=== PATIENT | female | born 1955 | race Caucasian/White ===

== ENCOUNTER 2018-08-02 23:55 | Inpatient (IN) | payer OTHER, MEDICARE ==
[~2018-08-02] VITALS: Ht 162.6 cm; Wt 108.6 kg
[2018-08-03] MEDS ORDERED: MORPHINE SULFATE 4 MG/ML, 1ML ONE ×2 (00:20→12:28)
[2018-08-03] MEDS ORDERED: ONDANSETRON 2MG/ML, 2ML ONE (00:20)
[2018-08-03] MEDS ORDERED: MORPHINE SULFATE 4 MG/ML, 1ML IVPush PRN (00:30)
[2018-08-03] MEDS ORDERED: SODIUM CHLORIDE 0.9% 1,000ML IVBOLUS ONE (00:30)
[2018-08-03] MEDS ORDERED: ONDANSETRON 2MG/ML, 2ML IVPush ONE (00:30)
[2018-08-03] MEDS ORDERED: NORE1TAB22 PO (00:58)
[2018-08-03] MEDS ORDERED: PARO20TA4 PO (00:58)
[2018-08-03] MEDS ORDERED: CLOB15CR19 TP (00:58)
[2018-08-03] MEDS ORDERED: ATEN100T PO (00:58)
[2018-08-03] MEDS ORDERED: IBUP-1222 PO (00:58)
[2018-08-03] MEDS ORDERED: OXYC-307 PO (00:58)
[2018-08-03] MEDS ORDERED: NORT25CA PO (00:58)
[2018-08-03] MEDS ORDERED: ONDANSETRON 2MG/ML, 2ML IVPush PRN (01:00)
[2018-08-03] MEDS ORDERED: ONDANSETRON ODT 4 MG PO PRN (01:00)
[2018-08-03] MEDS ORDERED: BACLOFEN 10 MG TABLET PO PRN (01:00)
[2018-08-03] MEDS ORDERED: POLYETHYLENE GLYCOL 17 GM PACKET PO PRN (01:00)
[2018-08-03] MEDS ORDERED: hydrALAzine 20 MG/ML, 1ML IVPush PRN (01:00)
[2018-08-03 02:46] LABS: MICROSCOPIC AUTO
[2018-08-03 02:47] LABS: CULTURE INDICATED? YES
[2018-08-03] MEDS: morphine SULFATE 10 MG/ML, 1ML IVPush PRN ×7 (03:50→19:10)
[2018-08-03] MEDS: SODIUM CHLORIDE 0.9% 1,000 ML IV SCH ×2 (03:50→16:02)
[2018-08-03 05:21] LABS: BASOPHILS # (AUTO) 0.03 x10^3/uL (0-0.1); BASOPHILS % (AUTO) 0 % (0-1); EOSINOPHILS # (AUTO) 0.03 x10^3/uL (0-0.4); EOSINOPHILS % (AUTO) 0 % (1-7); LYMPHOCYTES # (AUTO) 1.63 x10^3/uL (1-3.4); LYMPHOCYTES % (AUTO) 20 % (22-44); MD NO; MEAN CORPUSCULAR HEMOGLOBIN 27.5 pg (27.0-34.8); MEAN CORPUSCULAR HGB CONC 32.5 g/dL (32.4-35.8); MEAN CORPUSCULAR VOLUME 84.4 fL (80-100); MEAN PLATELET VOLUME 7.4 fL (7.4-10.4); MONOCYTES # (AUTO) 0.44 x10^3/uL (0.2-0.8); MONOCYTES % (AUTO) 5 % (2-9); NEUTROPHILS # (AUTO) 6.11 x10^3/uL (1.8-6.8); NEUTROPHILS % (AUTO) 74 % (42-75); PLATELET COUNT 258 x10^3/uL (130-400); RED BLOOD COUNT 4.08 x10^6/uL (3.82-5.3); RED CELL DISTRIBUTION WIDTH 13.6 % (9.6-15.2)
[2018-08-03 05:34] LABS: CHLORIDE 106 mmol/L (98-107)
[2018-08-03 05:38] LABS: ANION GAP 10 mmol/L (5-15); CALCIUM 8.2 mg/dL (8.5-10.1); CREATININE 1.06 mg/dL (0.55-1.02)
[2018-08-03 07:02] VITALS: BP 113/76
[2018-08-03] MEDS ORDERED: AMLO10TA6 PO (09:41)
[2018-08-03] MEDS ORDERED: FLUO40CA9 PO (09:41)
[2018-08-03] MEDS ORDERED: DULO30CA2 PO (09:41)
[2018-08-03 12:45] VITALS: BP 102/74
[2018-08-03] MEDS ORDERED: GLUCAGON 1 MG IM PRN (14:00)
[2018-08-03] MEDS ORDERED: DEXTROSE 4 GM TAB.CHEW PO PRN (14:00)
[2018-08-03] MEDS ORDERED: DEXTROSE 50%, 50ML SYRINGE IVPush PRN (14:00)
[2018-08-03] MEDS: D5%-0.45% NACL 1,000 ML IV SCH (14:45)
[2018-08-03 20:11] VITALS: BP 124/79
[2018-08-03] MEDS: ACETAMINOPHEN 325 MG TABLET PO PRN (20:37)
[2018-08-03] MEDS: CLOBETASOL PROPIONATE CRM 0.05%, 15GM TP SCH (21:00)
[2018-08-03] MEDS: SODIUM CHLORIDE FLUSH 10ML SYR IVF SCH (21:00)
[2018-08-03] MEDS: FLUOXETINE HCL 20 MG CAPSULE PO SCH (21:19)
[2018-08-03] MEDS: NORTRIPTYLINE 50 MG CAPSULE PO SCH (21:20)
[2018-08-03] MEDS: OXYcodone IR 5MG TABLET PO PRN (21:20)
[2018-08-04] MEDS: OXYcodone IR 5MG TABLET PO PRN ×6 (01:46→22:03)
[2018-08-04 02:02] VITALS: BP 115/75
[2018-08-04] MEDS: morphine SULFATE 10 MG/ML, 1ML IVPush PRN ×3 (04:57→10:28)
[2018-08-04 05:40] LABS: CHLORIDE 104 mmol/L (98-107)
[2018-08-04 05:47] LABS: ANION GAP 10 mmol/L (5-15); CALCIUM 8.5 mg/dL (8.5-10.1); CREATININE 1.26 mg/dL (0.55-1.02)
[2018-08-04 05:55] LABS: BASOPHILS # (AUTO) 0.02 x10^3/uL (0-0.1); BASOPHILS % (AUTO) 0 % (0-1); EOSINOPHILS # (AUTO) 0.29 x10^3/uL (0-0.4); EOSINOPHILS % (AUTO) 3 % (1-7); LYMPHOCYTES # (AUTO) 1.35 x10^3/uL (1-3.4); LYMPHOCYTES % (AUTO) 16 % (22-44); MD NO; MEAN CORPUSCULAR HEMOGLOBIN 27.9 pg (27.0-34.8); MEAN CORPUSCULAR VOLUME 84.7 fL (80-100); MEAN PLATELET VOLUME 7.5 fL (7.4-10.4); MONOCYTES # (AUTO) 0.68 x10^3/uL (0.2-0.8); MONOCYTES % (AUTO) 8 % (2-9); NEUTROPHILS # (AUTO) 6.05 x10^3/uL (1.8-6.8); NEUTROPHILS % (AUTO) 72 % (42-75); PLATELET COUNT 223 x10^3/uL (130-400); RED BLOOD COUNT 3.92 x10^6/uL (3.82-5.3); RED CELL DISTRIBUTION WIDTH 13.5 % (9.6-15.2)
[2018-08-04 07:02] LABS: HEMOGLOBIN A1C 5.7 % (4.2-6.3)
[2018-08-04] MEDS: FLUOXETINE HCL 20 MG CAPSULE PO SCH ×2 (08:14→22:03)
[2018-08-04] MEDS: ATENOLOL 50 MG TABLET PO SCH (08:14)
[2018-08-04] MEDS: DULOXETINE 30 MG CAPSULE.DR PO SCH (08:14)
[2018-08-04] MEDS: AMLODIPINE 10 MG TAB PO SCH ×2 (08:14→08:24)
[2018-08-04] MEDS: NORETHINDRONE ETHINYL ESTRAD PO SCH (08:15)
[2018-08-04] MEDS: SODIUM CHLORIDE FLUSH 10ML SYR IVF SCH ×2 (08:15→21:00)
[2018-08-04 08:22] VITALS: BP 111/76
[2018-08-04] MEDS: CLOBETASOL PROPIONATE CRM 0.05%, 15GM TP SCH ×2 (09:00→21:00)
[2018-08-04] MEDS: D5%-0.45% NACL 1,000 ML IV SCH (10:00)
[2018-08-04] MEDS: SODIUM CHLORIDE 0.9% 1,000 ML IV SCH (12:33)
[2018-08-04 13:59] VITALS: BP 99/56
[2018-08-04] MEDS: ACETAMINOPHEN 325 MG TABLET PO PRN (15:00)
[2018-08-04 18:52] VITALS: BP 103/61
[2018-08-04] MEDS: NORTRIPTYLINE 50 MG CAPSULE PO SCH (22:03)
[2018-08-05] MEDS: SODIUM CHLORIDE 0.9% 1,000 ML IV SCH (00:20)
[2018-08-05 01:09] VITALS: BP 116/74
[2018-08-05] MEDS: OXYcodone IR 5MG TABLET PO PRN (02:05)
[2018-08-05] MEDS: D5%-0.45% NACL 1,000 ML IV SCH ×2 (02:05→19:29)
[2018-08-05] MEDS: ACETAMINOPHEN 325 MG TABLET PO PRN (02:05)
[2018-08-05] MEDS: morphine SULFATE 10 MG/ML, 1ML IVPush PRN (05:36)
[2018-08-05 08:53] VITALS: BP 103/58
[2018-08-05] MEDS: NORETHINDRONE ETHINYL ESTRAD PO SCH (09:00)
[2018-08-05] MEDS: CLOBETASOL PROPIONATE CRM 0.05%, 15GM TP SCH ×2 (09:00→21:00)
[2018-08-05] MEDS: SODIUM CHLORIDE FLUSH 10ML SYR IVF SCH ×3 (09:00→20:42)
[2018-08-05] MEDS ORDERED: MIDAZOLAM 1 MG/ML, 2ML ONE (10:58)
[2018-08-05] MEDS ORDERED: FENTANYL PF 250 MCG/5ML ONE (10:59)
[2018-08-05] MEDS ORDERED: PHENYLEPHRINE 10 MG/ML ONE (11:02)
[2018-08-05] MEDS ORDERED: ONDANSETRON 2MG/ML, 2ML ONE ×2 (11:02)
[2018-08-05] MEDS ORDERED: DEXAMETHASONE 4 MG/ML, 1ML ONE (11:19)
[2018-08-05] MEDS ORDERED: ALBUTEROL SULFATE 2.5 MG/3 ML NPPB PRN (11:30)
[2018-08-05] MEDS ORDERED: MIDAZOLAM 1 MG/ML, 2ML IV PRN (11:30)
[2018-08-05] MEDS ORDERED: PROMETHAZINE 12.5 MG SUPP PR PRN (11:30)
[2018-08-05] MEDS ORDERED: OXYcodone 5 MG/5 ML ORAL.SOL UDC PO PRN (11:30)
[2018-08-05] MEDS ORDERED: LABETALOL 5MG/ML, 20ML IV PRN (11:30)
[2018-08-05] MEDS ORDERED: ONDANSETRON 2MG/ML, 2ML IV PRN ×2 (11:30→15:00)
[2018-08-05] MEDS ORDERED: ONDANSETRON ODT 8 MG PO PRN (11:30)
[2018-08-05] MEDS ORDERED: hydrALAzine 20 MG/ML, 1ML IV PRN (11:30)
[2018-08-05] MEDS ORDERED: PROMETHAZINE 25 MG/ML, 1ML IV PRN (11:30)
[2018-08-05] MEDS ORDERED: MORPHINE SULFATE 4 MG/ML, 1ML IVPush PRN (11:30)
[2018-08-05] MEDS ORDERED: EPHEDRINE 50 MG/ML, 1ML IVPush PRN (11:30)
[2018-08-05] MEDS ORDERED: LORazepam 2 MG/ML, 1ML IVPush PRN (11:30)
[2018-08-05] MEDS ORDERED: HALOPERIDOL 5 MG/ML IV PRN (11:30)
[2018-08-05] MEDS ORDERED: VANCOMYCIN 1,500 MG in SODIUM CHLORIDE 0.9% 250 ML IV ONE (12:00)
[2018-08-05] MEDS ORDERED: VANCOMYCIN PER PHARMACY MC ONE (12:00)
[2018-08-05] MEDS ORDERED: VANCOMYCIN 1,500 MG in SODIUM CHLORIDE 0.9% 250 ML IV SCH (12:00)
[2018-08-05] MEDS ORDERED: FENTANYL PF 100 MCG/2ML ONE ×2 (12:03→13:33)
[2018-08-05] MEDS ORDERED: SUCCINYLCHOLINE 20 MG/ML, 10ML ONE (12:06)
[2018-08-05] MEDS ORDERED: PROPOFOL 10 MG/ML, 20ML ONE (12:06)
[2018-08-05] MEDS ORDERED: ROCURONIUM 10MG/ML,5ML ONE (12:06)
[2018-08-05] MEDS ORDERED: MORPHINE SULFATE 4 MG/ML, 1ML ONE (12:50)
[2018-08-05 13:20] VITALS: BP 177/87
[2018-08-05] MEDS ORDERED: MEPERIDINE/PF 50 MG/ML ONE (13:24)
[2018-08-05] MEDS ORDERED: OXYcodone 5 MG/5 ML ORAL.SOL UDC ONE (13:24)
[2018-08-05] MEDS: MEPERIDINE/PF 25MG/0.5ML IVPush PRN ×2 (13:26→13:43)
[2018-08-05] MEDS: FENTANYL PF 100 MCG/2ML IV PRN ×2 (13:30→13:50)
[2018-08-05] MEDS ORDERED: HYDROmorphone 1 MG/ML, 1ML IV PRN (15:00)
[2018-08-05] MEDS ORDERED: KETOROLAC 30 MG/1 ML IV SCH (15:00)
[2018-08-05] MEDS ORDERED: HYDROcodone/APAP 5/325 TABLET PO PRN (15:00)
[2018-08-05] MEDS: FLUOXETINE HCL 20 MG CAPSULE PO SCH ×2 (16:59→20:41)
[2018-08-05] MEDS: DULOXETINE 30 MG CAPSULE.DR PO SCH (17:00)
[2018-08-05] MEDS: CLINDAMYCIN PMX 600MG/50ML 50 ML IVPB SCH (17:32)
[2018-08-05 20:05] VITALS: BP 137/85
[2018-08-05] MEDS: OXYcodone/APAP 5/325MG TABLET PO PRN (20:40)
[2018-08-05] MEDS: NORTRIPTYLINE 50 MG CAPSULE PO SCH (20:40)
[2018-08-05] MEDS: DOCUSATE 100 MG CAPSULE PO SCH (20:41)
[2018-08-05] MEDS: ATENOLOL 50 MG TABLET PO SCH (21:00)
[2018-08-05] MEDS: AMLODIPINE 10 MG TAB PO SCH (21:00)
[2018-08-05] MEDS: TEMAZEPAM 30 MG CAPSULE PO PRN (22:19)
[2018-08-06 00:50] VITALS: BP 114/79
[2018-08-06] MEDS: CLINDAMYCIN PMX 600MG/50ML 50 ML IVPB SCH (01:36)
[2018-08-06 02:33] VITALS: BP 118/85
[2018-08-06] MEDS: OXYcodone/APAP 5/325MG TABLET PO PRN ×3 (03:10→10:23)
[2018-08-06 07:26] VITALS: BP 125/71
[2018-08-06] MEDS: CLOBETASOL PROPIONATE CRM 0.05%, 15GM TP SCH ×2 (09:00→21:00)
[2018-08-06] MEDS: NORETHINDRONE ETHINYL ESTRAD PO SCH (09:00)
[2018-08-06] MEDS: AMLODIPINE 10 MG TAB PO SCH (09:00)
[2018-08-06] MEDS: SODIUM CHLORIDE FLUSH 10ML SYR IVF SCH ×2 (09:00→21:00)
[2018-08-06] MEDS ORDERED: BISACODYL 10 MG SUPP PR PRN (10:00)
[2018-08-06] MEDS ORDERED: MAGNESIUM HYDROXIDE 8%, 30ML UDC PO PRN (10:00)
[2018-08-06] MEDS ORDERED: MAGNESIUM CITRATE 300ML ORAL SOL PO PRN ×2 (10:00)
[2018-08-06] MEDS ORDERED: DOCUSATE 100 MG CAPSULE PO PRN (10:00)
[2018-08-06] MEDS ORDERED: POLYETHYLENE GLYCOL 17 GM PACKET PO PRN (10:00)
[2018-08-06] MEDS: ATENOLOL 50 MG TABLET PO SCH (10:18)
[2018-08-06] MEDS: DOCUSATE 100 MG CAPSULE PO SCH ×2 (10:19→21:11)
[2018-08-06] MEDS: DULOXETINE 30 MG CAPSULE.DR PO SCH (10:20)
[2018-08-06] MEDS: FLUOXETINE HCL 20 MG CAPSULE PO SCH ×2 (10:20→21:11)
[2018-08-06] MEDS: MEROPENEM 1 GM in SODIUM CHLORIDE 0.9% 100 ML IV SCH ×2 (10:20→17:35)
[2018-08-06 12:53] VITALS: BP 112/68
[2018-08-06] MEDS: OXYcodone IR 5MG TABLET PO PRN ×3 (13:09→21:36)
[2018-08-06] MEDS: ACETAMINOPHEN 325 MG TABLET PO PRN ×2 (15:50→23:32)
[2018-08-06 20:16] VITALS: BP 108/62
[2018-08-06] MEDS: NORTRIPTYLINE 50 MG CAPSULE PO SCH (21:12)
[2018-08-06] MEDS: TEMAZEPAM 30 MG CAPSULE PO PRN (23:32)
[2018-08-07] MEDS: OXYcodone IR 5MG TABLET PO PRN ×6 (01:44→22:03)
[2018-08-07] MEDS: MEROPENEM 1 GM in SODIUM CHLORIDE 0.9% 100 ML IV SCH ×4 (01:44→20:22)
[2018-08-07 02:02] VITALS: BP 114/68
[2018-08-07 07:35] VITALS: BP 148/75
[2018-08-07] MEDS: SODIUM CHLORIDE FLUSH 10ML SYR IVF SCH ×2 (09:00→22:01)
[2018-08-07] MEDS: NORETHINDRONE ETHINYL ESTRAD PO SCH (09:00)
[2018-08-07] MEDS: CLOBETASOL PROPIONATE CRM 0.05%, 15GM TP SCH ×2 (09:00→21:00)
[2018-08-07] MEDS: AMLODIPINE 10 MG TAB PO SCH (09:00)
[2018-08-07] MEDS: FLUOXETINE HCL 20 MG CAPSULE PO SCH ×2 (09:15→22:02)
[2018-08-07] MEDS: DOCUSATE 100 MG CAPSULE PO SCH ×2 (09:16→22:02)
[2018-08-07] MEDS: ATENOLOL 50 MG TABLET PO SCH (09:16)
[2018-08-07] MEDS: DULOXETINE 30 MG CAPSULE.DR PO SCH (09:16)
[2018-08-07] MEDS: D5%-0.45% NACL 1,000 ML IV SCH (09:20)
[2018-08-07] MEDS: METHOCARBAMOL 500 MG TABLET PO SCH ×3 (09:57→22:02)
[2018-08-07] MEDS: ACETAMINOPHEN 325 MG TABLET PO PRN ×2 (11:40→16:53)
[2018-08-07] MEDS ORDERED: OMNIPAQUE 350 MG/ML, 100ML BOTTLE ONE (12:17)
[2018-08-07 13:48] VITALS: BP 128/57
[2018-08-07 20:20] VITALS: BP 89/46
[2018-08-07] MEDS: NORTRIPTYLINE 50 MG CAPSULE PO SCH (22:02)
[2018-08-07] MEDS: TEMAZEPAM 30 MG CAPSULE PO PRN (23:54)
[2018-08-08] MEDS: OXYcodone IR 5MG TABLET PO PRN ×5 (02:06→23:38)
[2018-08-08] MEDS: MEROPENEM 1 GM in SODIUM CHLORIDE 0.9% 100 ML IV SCH ×3 (04:01→17:58)
[2018-08-08 04:16] VITALS: BP 91/47
[2018-08-08] MEDS: METHOCARBAMOL 500 MG TABLET PO SCH ×4 (05:59→21:05)
[2018-08-08 07:07] VITALS: BP 92/47
[2018-08-08] MEDS: ATENOLOL 50 MG TABLET PO SCH (07:50)
[2018-08-08] MEDS: FLUOXETINE HCL 20 MG CAPSULE PO SCH ×2 (07:50→21:05)
[2018-08-08] MEDS: DULOXETINE 30 MG CAPSULE.DR PO SCH (07:50)
[2018-08-08] MEDS: SODIUM CHLORIDE FLUSH 10ML SYR IVF SCH ×2 (07:50→21:00)
[2018-08-08] MEDS: DOCUSATE 100 MG CAPSULE PO SCH ×2 (07:50→21:05)
[2018-08-08] MEDS: D5%-0.45% NACL 1,000 ML IV SCH (07:51)
[2018-08-08] MEDS: CLOBETASOL PROPIONATE CRM 0.05%, 15GM TP SCH ×2 (07:51→21:00)
[2018-08-08] MEDS: AMLODIPINE 10 MG TAB PO SCH (07:51)
[2018-08-08] MEDS: NORETHINDRONE ETHINYL ESTRAD PO SCH (07:51)
[2018-08-08] MEDS ORDERED: METHYLNALTREXONE 12 MG/0.6 ML SQ ONE (08:30)
[2018-08-08 09:09] LABS: BASOPHILS # (AUTO) 0.03 x10^3/uL (0-0.1); BASOPHILS % (AUTO) 1 % (0-1); EOSINOPHILS # (AUTO) 0.21 x10^3/uL (0-0.4); EOSINOPHILS % (AUTO) 3 % (1-7); LYMPHOCYTES # (AUTO) 1.12 x10^3/uL (1-3.4); LYMPHOCYTES % (AUTO) 17 % (22-44); MD NO; MEAN CORPUSCULAR HEMOGLOBIN 27.6 pg (27.0-34.8); MEAN CORPUSCULAR HGB CONC 32.6 g/dL (32.4-35.8); MEAN CORPUSCULAR VOLUME 84.7 fL (80-100); MEAN PLATELET VOLUME 6.9 fL (7.4-10.4); MONOCYTES # (AUTO) 0.29 x10^3/uL (0.2-0.8); MONOCYTES % (AUTO) 4 % (2-9); NEUTROPHILS # (AUTO) 4.84 x10^3/uL (1.8-6.8); NEUTROPHILS % (AUTO) 75 % (42-75); PLATELET COUNT 287 x10^3/uL (130-400); RED BLOOD COUNT 3.06 x10^6/uL (3.82-5.3); RED CELL DISTRIBUTION WIDTH 13.8 % (9.6-15.2)
[2018-08-08 09:15] LABS: ANION GAP 9 mmol/L (5-15); CALCIUM 7.6 mg/dL (8.5-10.1); CHLORIDE 100 mmol/L (98-107)
[2018-08-08] MEDS: SODIUM CHLORIDE 0.9% 1,000 ML IV SCH ×2 (09:24→17:58)
[2018-08-08 11:11] VITALS: BP 117/72
[2018-08-08 12:45] VITALS: BP 112/47
[2018-08-08] MEDS: ACETAMINOPHEN 325 MG TABLET PO PRN (16:09)
[2018-08-08 20:00] VITALS: BP 125/66
[2018-08-08] MEDS: NORTRIPTYLINE 50 MG CAPSULE PO SCH (21:05)
[2018-08-08] MEDS: TEMAZEPAM 30 MG CAPSULE PO PRN (23:38)
[2018-08-09] MEDS: MEROPENEM 1 GM in SODIUM CHLORIDE 0.9% 100 ML IV SCH ×3 (01:29→18:06)
[2018-08-09 04:58] VITALS: BP 106/64
[2018-08-09] MEDS: OXYcodone IR 5MG TABLET PO PRN ×4 (05:40→20:10)
[2018-08-09] MEDS: METHOCARBAMOL 500 MG TABLET PO SCH ×4 (05:40→23:15)
[2018-08-09 06:37] VITALS: BP 105/59
[2018-08-09] MEDS: DULOXETINE 30 MG CAPSULE.DR PO SCH (08:32)
[2018-08-09] MEDS: FLUOXETINE HCL 20 MG CAPSULE PO SCH ×2 (08:32→23:16)
[2018-08-09] MEDS: ATENOLOL 50 MG TABLET PO SCH (08:33)
[2018-08-09] MEDS: AMLODIPINE 10 MG TAB PO SCH (08:33)
[2018-08-09] MEDS: SODIUM CHLORIDE FLUSH 10ML SYR IVF SCH ×3 (08:34→21:00)
[2018-08-09] MEDS: CLOBETASOL PROPIONATE CRM 0.05%, 15GM TP SCH ×2 (08:34→21:00)
[2018-08-09] MEDS: NORETHINDRONE ETHINYL ESTRAD PO SCH (08:34)
[2018-08-09 09:08] LABS: BASOPHILS # (AUTO) 0.02 x10^3/uL (0-0.1); BASOPHILS % (AUTO) 0 % (0-1); EOSINOPHILS # (AUTO) 0.24 x10^3/uL (0-0.4); EOSINOPHILS % (AUTO) 4 % (1-7); LYMPHOCYTES # (AUTO) 1.62 x10^3/uL (1-3.4); LYMPHOCYTES % (AUTO) 28 % (22-44); MD NO; MEAN CORPUSCULAR HEMOGLOBIN 27.9 pg (27.0-34.8); MEAN CORPUSCULAR VOLUME 84.5 fL (80-100); MEAN PLATELET VOLUME 6.8 fL (7.4-10.4); MONOCYTES # (AUTO) 0.14 x10^3/uL (0.2-0.8); MONOCYTES % (AUTO) 2 % (2-9); NEUTROPHILS # (AUTO) 3.86 x10^3/uL (1.8-6.8); NEUTROPHILS % (AUTO) 66 % (42-75); PLATELET COUNT 335 x10^3/uL (130-400); RED BLOOD COUNT 3.05 x10^6/uL (3.82-5.3); RED CELL DISTRIBUTION WIDTH 13.7 % (9.6-15.2)
[2018-08-09 09:19] LABS: ANION GAP 8 mmol/L (5-15); CALCIUM 7.7 mg/dL (8.5-10.1); CHLORIDE 104 mmol/L (98-107); CREATININE 0.89 mg/dL (0.55-1.02)
[2018-08-09] MEDS: DOCUSATE 100 MG CAPSULE PO SCH ×2 (10:13→23:16)
[2018-08-09 12:04] VITALS: BP 108/72
[2018-08-09] MEDS ORDERED: MERO1VIA15 IV (16:06)
[2018-08-09] MEDS ORDERED: METH500T7 PO (16:06)
[2018-08-09] MEDS: ACETAMINOPHEN 325 MG TABLET PO PRN (16:36)
[2018-08-09 20:24] VITALS: BP 113/66
[2018-08-09] MEDS: NORTRIPTYLINE 50 MG CAPSULE PO SCH (23:15)
[2018-08-09] MEDS: TEMAZEPAM 30 MG CAPSULE PO PRN (23:16)
[2018-08-10] MEDS: MEROPENEM 1 GM in SODIUM CHLORIDE 0.9% 100 ML IV SCH ×3 (01:55→17:38)
[2018-08-10] MEDS: OXYcodone IR 5MG TABLET PO PRN ×4 (02:35→20:48)
[2018-08-10 03:42] VITALS: BP 100/56
[2018-08-10] MEDS: METHOCARBAMOL 500 MG TABLET PO SCH ×4 (05:55→22:09)
[2018-08-10 06:48] VITALS: BP 109/63
[2018-08-10] MEDS: FLUOXETINE HCL 20 MG CAPSULE PO SCH ×2 (08:39→22:10)
[2018-08-10] MEDS: DULOXETINE 30 MG CAPSULE.DR PO SCH (08:39)
[2018-08-10] MEDS: DOCUSATE 100 MG CAPSULE PO SCH ×2 (08:39→22:10)
[2018-08-10] MEDS: ATENOLOL 50 MG TABLET PO SCH (08:40)
[2018-08-10] MEDS: AMLODIPINE 10 MG TAB PO SCH (08:40)
[2018-08-10] MEDS: NORETHINDRONE ETHINYL ESTRAD PO SCH (08:41)
[2018-08-10] MEDS: CLOBETASOL PROPIONATE CRM 0.05%, 15GM TP SCH ×2 (08:41→21:00)
[2018-08-10] MEDS: SODIUM CHLORIDE FLUSH 10ML SYR IVF SCH ×2 (08:41→21:00)
[2018-08-10 12:44] VITALS: BP 142/86
[2018-08-10 18:44] VITALS: BP 121/75
[2018-08-10] MEDS: NORTRIPTYLINE 50 MG CAPSULE PO SCH (22:10)
[2018-08-11] MEDS: TEMAZEPAM 30 MG CAPSULE PO PRN ×2 (00:18→23:06)
[2018-08-11 01:02] VITALS: BP 115/66
[2018-08-11] MEDS: MEROPENEM 1 GM in SODIUM CHLORIDE 0.9% 100 ML IV SCH ×2 (02:04→10:09)
[2018-08-11] MEDS: ACETAMINOPHEN 325 MG TABLET PO PRN ×2 (02:04→23:06)
[2018-08-11] MEDS: OXYcodone IR 5MG TABLET PO PRN ×4 (02:49→23:06)
[2018-08-11] MEDS: METHOCARBAMOL 500 MG TABLET PO SCH ×4 (06:06→21:10)
[2018-08-11] MEDS: CLOBETASOL PROPIONATE CRM 0.05%, 15GM TP SCH ×2 (09:00→21:00)
[2018-08-11] MEDS: NORETHINDRONE ETHINYL ESTRAD PO SCH (09:00)
[2018-08-11] MEDS: SODIUM CHLORIDE FLUSH 10ML SYR IVF SCH ×2 (09:00→21:11)
[2018-08-11 09:08] VITALS: BP 120/75
[2018-08-11] MEDS: AMLODIPINE 10 MG TAB PO SCH (09:33)
[2018-08-11] MEDS: DOCUSATE 100 MG CAPSULE PO SCH ×2 (09:34→21:10)
[2018-08-11] MEDS: DULOXETINE 30 MG CAPSULE.DR PO SCH (09:35)
[2018-08-11] MEDS: FLUOXETINE HCL 20 MG CAPSULE PO SCH ×2 (09:36→21:10)
[2018-08-11] MEDS: ATENOLOL 50 MG TABLET PO SCH (09:37)
[2018-08-11 14:46] VITALS: BP 102/67
[2018-08-11] MEDS ORDERED: METH500T7 PO (16:52)
[2018-08-11] MEDS ORDERED: OXYC5TAB3 PO (16:52)
[2018-08-11 18:57] VITALS: BP 127/60
[2018-08-11] MEDS: NORTRIPTYLINE 50 MG CAPSULE PO SCH (21:09)
[2018-08-12 01:50] VITALS: BP 129/63
[2018-08-12] MEDS: METHOCARBAMOL 500 MG TABLET PO SCH ×2 (06:14→11:00)
[2018-08-12] MEDS: OXYcodone IR 5MG TABLET PO PRN ×2 (06:15→12:56)
[2018-08-12] MEDS: ATENOLOL 50 MG TABLET PO SCH (08:25)
[2018-08-12] MEDS: DOCUSATE 100 MG CAPSULE PO SCH (08:26)
[2018-08-12] MEDS: DULOXETINE 30 MG CAPSULE.DR PO SCH (08:26)
[2018-08-12] MEDS: FLUOXETINE HCL 20 MG CAPSULE PO SCH (08:26)
[2018-08-12] MEDS: NORETHINDRONE ETHINYL ESTRAD PO SCH (08:27)
[2018-08-12] MEDS: SODIUM CHLORIDE FLUSH 10ML SYR IVF SCH (08:27)
[2018-08-12] MEDS: AMLODIPINE 10 MG TAB PO SCH (08:27)
[2018-08-12] MEDS: CLOBETASOL PROPIONATE CRM 0.05%, 15GM TP SCH (08:29)
[2018-08-12 09:10] VITALS: BP 118/62
[2018-08-12] MEDS: ACETAMINOPHEN 325 MG TABLET PO PRN (11:21)
[2018-08-12 13:45] VITALS: BP 120/72
== END 2018-08-12 14:25 | disposition home or self-care (01) | DRG 493 ==
LOC: ED 08-03 00:21 → SUATTDRO 08-03 00:31 → EDIP 08-03 00:44 → ED 08-03 00:46 → 4NOR 08-03 01:19
PROVIDERS: ADMIT Hospitalist; ATTEND Hospitalist
PROC: 0T9B70Z Drainage of Bladder with Drainage Device, Via Natural or Artificial Opening (ICD-10-PCS; 2018-08-03)
PROC: 0PSF04Z Reposition Right Humeral Shaft with Internal Fixation Device, Open Approach (ICD-10-PCS; principal; 2018-08-05 12:00)
DX: S42.351A Displaced comminuted fracture of shaft of humerus, right arm, initial encounter for closed fracture (principal); N39.0 Urinary tract infection, site not specified; F11.20 Opioid dependence, uncomplicated; Z68.41 Body mass index [BMI] 40.0-44.9, adult; W01.0XXA Fall on same level from slipping, tripping and stumbling without subsequent striking against object, initial encounter; E66.01 Morbid (severe) obesity due to excess calories; F17.200 Nicotine dependence, unspecified, uncomplicated; N18.3 Chronic kidney disease, stage 3 (moderate); K59.00 Constipation, unspecified; M17.0 Bilateral primary osteoarthritis of knee; Z16.12 Extended spectrum beta lactamase (ESBL) resistance; E11.22 Type 2 diabetes mellitus with diabetic chronic kidney disease; I95.9 Hypotension, unspecified; I12.9 Hypertensive chronic kidney disease with stage 1 through stage 4 chronic kidney disease, or unspecified chronic kidney disease; Y92.009 Unspecified place in unspecified non-institutional (private) residence as the place of occurrence of the external cause; Z88.8 Allergy status to other drugs, medicaments and biological substances
CPT/HCPCS: 29105; 36415; 70450; 71045; 74177; 76000; 76770; 80048; 81001; 82962; 83036; 83605; 83735; 84100; 84145; 85025; 87077; 87086; 87186; 96374; 96375; 99285; C1713; G0378; J1100; J2175; J2185; J2250; J2405; J2704; J3010; J3370; Q9967; J0330; J2270; J2370; J7030; J7050